=== PATIENT | male | born 2000 | race Two or more races ===

== ENCOUNTER 2024-08-05 16:12 | Emergency (ER) | payer BC, OTHER ==
[~2024-08-05] VITALS: Ht 180.3 cm; Wt 96.8 kg
[2024-08-05 17:23] VITALS: BP 130/71; PULSE 52; RESP 17; TEMP 98.2; O2SAT 98
--- NOTE | 2024-08-05 17:33 | ED.PDOC ---
HPI (NEURO) HPI Comments 24Y M presents to ED for chief complaint headache x6days. Pt states headache is intermittent and is described as tightness on the neck and scalp. Pt denies visual aura and photophobia. Pt denies h/o migraines. Pt states Ibuprofen helps alleviate symptoms sometimes. Current pain level 7/10. Chief Complaint: Headache Time Seen by MD: 17:00 Primary Care Provider: DENIES Reviewed Notes: Nurses Notes, Medications, Allergies Mode of Arrival: Ambulatory Severity: Mild Dizziness/Weakness Severity: Does not affect activitie Headache Severity: Mild Timing: Days Duration: Intermittent Headache Quality: Tight Headache Location: Occipital, Other (neck and scalp) Onset: At rest Circumstances: Spontaneous Symptoms: None History of: None Modifying factors: Nothing Associated Signs and Symptoms: Other Past Medical History PAST MEDICAL HISTORY: Denies Surgical History: Denies all surgeries Family History Family History: Unknown Social History Smoker: Non-Smoker Alcohol: Occasionally Drugs: Denies Drug Use Lives In: Home Constitutional: denies: chills, diaphoresis, fatigue, fever, malaise, sweats, weakness, others EENTM: denies: blurred vision, double vision, ear bleeding, ear discharge, ear drainage, ear pain, ear ringing, eye pain, eye redness, hearing loss, mouth pain, mouth swelling, nasal discharge, nose bleeding, nose congestion, nose pain, photophobia, tearing, throat pain, throat swelling, voice changes, others Respiratory: denies: cough, hemoptysis, orthopnea, SOB at rest, shortness of breath, SOB with excertion, stridor, wheezing, others Cardiovascular: denies: chest pain, dizzy spells, diaphoresis, Dyspnea on exertion, edema, irregular heart beat, left arm pain, lightheadedness, palpitations, PND, syncope, others Gastrointestinal: denies: abdomen distended, abdominal pain, blood streaked bowels, constipated, diarrhea, dysphagia, difficulty swallowing, hematemesis, melena, nausea, poor appetite, poor fluid intake, rectal bleeding, rectal pain, vomiting, others Genitourinary: denies: burning, dysuria, flank pain, frequency, hematuria, incontinence, penile discharge, penile sore, pain, testicle pain, testicle swelling, urgency, others Neurological: reports: headache; denies: dizziness, fainting, left sided numbness, left sided weakness, numbness, paresthesia, pre-existing deficit, right sided numbness, right sided weakness, seizure, speech problems, tingling, tremors, weakness, others Musculoskeletal: denies: back pain, gout, joint pain, joint swelling, muscle pain, muscle stiffness, neck pain, others Integumetry: denies: bruises, change in color, change in hair/nails, dryness, laceration, lesions, lumps, rash, wounds, others Allergic/Immunocompromised: denies: Difficulty Healing, Frequent Infections, Hives, Itching, others Hematologic/Lymphatic: denies: anemia, blood clots, easy bleeding, easy bruising, swollen glands, others Endocrine: denies: excessive hunger, excessive sweating, excessive thirst, excessive urination, flushing, intolerance to cold, intolerance to heat, unexplained weight gain, unexplained weight loss, others Psychiatric: denies: anxiety, bipolar disorder, depression, hopeless, panic disorder, schizophrenia, sleepless, suicidal, others All Other Systems: Reviewed and Negative Physical Exam General Appearance: No Apparent Distress, Normal HEENT: Normal ENT Inspection, Pharynx Normal, TMs Normal Neck: Full Range of Motion, Non-Tender, Normal, Normal Inspection Respiratory: Chest Non-Tender, Lungs Clear, No Accessory Muscle Use, No Respiratory Distress, Normal Breath Sounds Cardiovascular: No Edema, No JVD, No Murmur, No Gallop, Normal Peripheral Pulses, Regular Rate/Rhythm Breast Exam: Deferred Gastrointestinal: No Organomegaly, Non Tender, No Pulsatile Mass, Normal Bowel Sounds, Soft Genitalia: Deferred Pelvic: Deferred Rectal: Deferred Extremities: No calf tenderness, Normal capillary refill, Normal inspection, Normal range of motion, Non-tender, No pedal edema Musculoskeletal : Apperance: Tenderness (paraspinal muscle) Neurologic: Alert, production floater II-XII nml as Tested, No Motor Deficits, Normal Affect, Normal Mood, No Sensory Deficits Cerebellar Function: Normal Reflexes: Normal Skin: Dry, Normal Color, Warm Lymphatic: No Adenopathy Was a procedure done? Was a procedure done?: No X-Ray, Labs, Meds, VS Vital Signs Date Time Temp Pulse Resp B/P (MAP) Pulse Ox O2 Delivery O2 Flow Rate FiO2 08/05/24 17:23 52 17 98 Room Air 08/05/24 17:23 98.2 52 17 130/71 (90) 98 98.2 08/05/24 16:35 97.4 54 18 121/65 (83) 100 Time of 1ST Reevaluation: 17:30 Reevaluation 1ST: Unchanged Patient Education/Counseling: Diagnosis, Treatment Family Education/Counseling: No Family Present Critical Care Note Critical Care Time?: No Stability Stability form required: No Heart Score Heart Score: Heart Score Response (Comments) Value History N/A 0 EKG N/A 0 Age N/A 0 Risk Factors N/A 0 Troponin N/A 0 Total 0 I personally scribed for JOYCELYN ANGULO ([email or web address]) on 08/05/24 at 17:33. Electronically submitted by Nuha Bush ([facility]). JOYCELYN ANGULO Aug 05, 2024 17:33
[2024-08-05] MEDS: methylPREDNISolone SOD SUCC 125 MG/2 ML VL IM ONE (17:35)
[2024-08-05] MEDS: KETOROLAC TROMETH 30 MG/ML 1ML VIAL IM ONE (17:35)
== END 2024-08-05 18:21 | disposition left against medical advice (07) ==
LOC: ER 16:12
DX: R51.9 Headache, unspecified (principal); M54.2 Cervicalgia; Z53.29 Procedure and treatment not carried out because of patient's decision for other reasons
CPT/HCPCS: 96372; 99284; J1885; J2919